=== PATIENT | male | born 1960 | race Two or more races ===

== ENCOUNTER 2019-07-03 03:18 | Inpatient (IN) | payer MEDICAID, MEDICARE ==
[~2019-07-03] VITALS: Ht 154.9 cm; Wt 49.0 kg
--- NOTE | 2019-07-03 02:30 | NUR ---
RN NOTES RECEIVED REPORT FROM NEEL SEGOVIA FROM [facility].
[2019-07-03 04:15] VITALS: BP 103/54
--- NOTE | 2019-07-03 04:15 | NUR ---
RN NOTES RECEIVED PATIENT VIA GURNEY FROM [facility] WITH AMBULANCE PERSONNEL AND RT AT BEDSIDE. , MARISEL AT BEDSIDE. RECEIVED BEDSIDE REPORT FROM NEEL INGRAM FOR DIDI. PER REPORT PT DIAGNOPATIENT CURRENTLY NONVERBAL, PER PATIENT WAS ALERT AND ABLE TO MOUTH WORDS PRIOR TO HOSPITALIZATION TODAY. PT ON MECHANICAL VENT TRACH SETTINGS: AC 24, TV 500, FIO2 40%, PEEP 5. TOLERATING WELL. SATURATING 100%. NO SOB, RESPIRATORY OR CARDIAC DISTRESS NOTED. IV SITES RIGHT WRIST 20G AND LEFT HAND 22G, BOTH FLUSHING AND PATENT, SITES C/D/I. RIGHT CHEST WALL HD CATHETER NOTED, SITE C/D/I. KEPT PT CLEAN, DRY, AND COMFORTABLE. GT FLUSHING AND PATENT, SITE C/D/I. RICCI CATH AND FLEXISEAL NOTED, BOTH OFF THE FLOOR AND DRAINING WELL. VITAL SIGNS AND SKIN ASSESSMENT DONE AND RECORDED. SAFETY MEASURES IN PLACE; SIDE RAILS UP X2, CALL LIGHT WITHIN REACH, HOB ELEVATED, SUCTION EQUIPMENT AT BEDSIDE. WILL CONT TO MONITOR PT CLOSELY. PEGGY BARR FOR ADMITTING ORDERS. AWAITING FOR ORDERS.
--- NOTE | 2019-07-03 05:09 | NUR ---
[address] SANDOVAL FOR ADMISSION ORDERS. AWAITING CALL BACK.
[2019-07-03 05:10] VITALS: BP 103/54
[2019-07-03] MEDS ORDERED: HEPARIN INFUSION/D5W 500 ML IV ONE (05:20)
[2019-07-03] MEDS ORDERED: BRIM5DRO2 LEFTEYE (05:21)
[2019-07-03] MEDS ORDERED: COLL30OI TP (05:21)
[2019-07-03] MEDS ORDERED: METF-440 GT (05:21)
[2019-07-03] MEDS ORDERED: LOPE2TAB25 GT (05:21)
[2019-07-03] MEDS ORDERED: DORZ10DR11 LEFTEYE (05:21)
[2019-07-03] MEDS ORDERED: LACT1CAP61 GT (05:21)
[2019-07-03] MEDS ORDERED: LISI2.5T2 GT (05:21)
[2019-07-03] MEDS ORDERED: CHOL4PAC GT (05:21)
[2019-07-03] MEDS ORDERED: LANS30CA62 GT (05:21)
[2019-07-03] MEDS ORDERED: BUDE0.253 NEB (05:21)
[2019-07-03] MEDS ORDERED: ALBU2.5V13 NEB (05:21)
[2019-07-03] MEDS ORDERED: HEPA500013 SQ (05:21)
[2019-07-03] MEDS ORDERED: ATRO10DR EACHEYE (05:21)
[2019-07-03] MEDS ORDERED: GLYCOPYRROLATE GT (05:21)
[2019-07-03] MEDS ORDERED: CARV12.5 GT (05:21)
[2019-07-03] MEDS ORDERED: HYDR-4076 GT (05:21)
[2019-07-03] MEDS ORDERED: LEVO500T75 GT (05:21)
[2019-07-03] MEDS ORDERED: ERGO500040 GT (05:21)
[2019-07-03] MEDS ORDERED: IPRA3AMP22 NEB (05:21)
--- NOTE | 2019-07-03 05:33 | NUR ---
1817 PAGED AGAIN FOR ADMISSION ORDERS. AWAITING CALL BACK.
--- NOTE | 2019-07-03 05:50 | NUR ---
RN NOTES PAGED MD AGAIN FOR ADMITTING ORDERS. STATED HE WILL PUT IN ORDERS FOR PATIENT. MD MADE AWARE OF HR 40'S AND HEPARIN DRIP ORDERED FROM EDWARDS 6ML/HR. MD ORDERED TO DISCONTINUE HEPARIN DRIP. WILL ATTEND TO ORDERS.
[2019-07-03] MEDS ORDERED: HYDROCODONE/APAP 5/325MG 1 EACH TABLET PO PRN (06:00)
[2019-07-03] MEDS ORDERED: ACETAMINOPHEN 325 MG TABLET PO PRN (06:00)
[2019-07-03] MEDS ORDERED: ZOLPIDEM TARTRATE 5 MG TABLET PO PRN (06:00)
[2019-07-03] MEDS ORDERED: MAG HYDROX/AL HYDROX/SIMETH 30 ML UDC PO PRN (06:00)
[2019-07-03] MEDS ORDERED: MAGNESIUM HYDROXIDE 30 ML UDC PO PRN (06:00)
[2019-07-03] MEDS: hydrALAZINE HCL 25 MG TABLET GT SCH ×3 (06:00→18:00)
[2019-07-03] MEDS ORDERED: ONDANSETRON HCL/PF 4 MG/2 ML VIAL IVP PRN (06:00)
[2019-07-03] MEDS ORDERED: Z GUARD REMEDY 2 OZ OINT TP PRN (06:00)
[2019-07-03] MEDS ORDERED: VANCOMYCIN 1 GM in IV D5W 250ml IV ONE (06:30)
[2019-07-03] MEDS ORDERED: VANCOMYCIN 1 GM VIAL ONE (06:31)
--- NOTE | 2019-07-03 07:25 | NUR ---
FLITCH HANGER OPENING NOTE: RECEIVED PATIENT IN BED, ASLEEP. AT BEDSIDE AND WAS PROVIDING THE PATIENT'S HISTORY. ON MECHANICAL VENTILATION, TOLERATING WELL. WILDLIFE CONSERVATION PROFESSOR SHOWS SINUS BRADYCARDIA IN THE 40S. MD IS AWARE OF THE SITUATION. WITH TRACH OF PORTEX 7, AC 24, TV500 FIO2 40% PEEP 5. WITH PEG TUBE, PATENT AND IN PLACE, IV SITE ON BILATERAL HANDS, PATENT. SITES CLEAN, DRY AND INTACT. RIGHT CHEST WALL LILLIAN CATHETER IN PLACE FOR HEMODIALYSIS. FLEXISEAL PRESENT AND RICCI CATHETER IN PLACE. NO URINE NOTED. NO PAIN NOTED, NOT IN DISTRESS. CALL LIGHT IN REACH, SIDE RAILS UP, BED LOCKED, LOW AND AT SEMI-KAMARA'S POSITION. WILL CONTINUE TO MONITOR.
--- NOTE | 2019-07-03 07:34 | NUR ---
PHYSICS TECHNICIAN CLOSING NOTES ALL ADMITTING ORDERS ATTENDED. PATIENT STILL UNRESPONSIVE. ON TELE MONITOR SB WITH HR 40'S, AWARE. PER , PATIENT ALLERGIC TO AN ANTIBIOTIC BUT CANNOT REMEMBER THE NAME AND STATED "CALL [employer], I THINK THEY KNOW THE NAME OF THE ANTIBIOTIC" AM RN MADE AWARE. PATIENT KEPT CLEAN, DRY, AND COMFORTABLE. ENDORSED TO AM RN FOR DIDI.
[2019-07-03 07:40] LABS: BASOPHILS % (AUTO) 0.2 % (0.0-2.0); EOSINOPHILS % (AUTO) 3.4 % (0.0-6.0); HEMATOCRIT 28 % (39-51); LYMPHOCYTES # (AUTO) 1.1 /CMM (0.8-4.8); LYMPHOCYTES % (AUTO) 7.4 % (20.0-44.0); MEAN CORPUSCULAR HGB CONC 32 g/dl (31.0-36.0); MEAN CORPUSCULAR VOLUME 95 fL (80-96); MONOCYTES # (AUTO) 0.9 /CMM (0.1-1.30); MONOCYTES % (AUTO) 5.9 % (2.0-12.0); NEUTROPHILS # (AUTO) 12.3 /CMM (1.8-8.9); NEUTROPHILS % (AUTO) 83.1 % (43.0-81.0); PLATELET COUNT (AUTO) 55 /CMM (150-450); RED BLOOD CELL COUNT(AUTO) 2.97 MIL/uL (4.5-6.0); WHITE BLOOD COUNT (AUTO) 14.8 K/uL (4.3-11.0)
[2019-07-03 07:59] LABS: CALCIUM, SERUM 7.6 mg/dL (8.5-10.1); CREATININE 2.8 mg/dL (0.6-1.3); MAGNESIUM 2.3 mg/dL (1.8-2.4); PHOSPHORUS 6.7 mg/dL (2.5-4.9); POTASSIUM 4.4 mmol/L (3.5-5.1)
[2019-07-03 08:00] VITALS: BP_SYST 108; BP_SYST 112; BP_DIAS 49
[2019-07-03 08:09] LABS: BAND % (MANUAL) 6 % (0.0-5.0); EOSINOPHILS % (MANUAL) 4 % (0-4); LYMPHOCYTES % (MANUAL) 10 % (16-48); MONOCYTES % (MANUAL) 6 % (0-11.0); NEUTROPHILS % (MANUAL) 74 (42-76)
[2019-07-03] MEDS: ALBUTEROL FS 2.5 MG/0.5 ML VIAL.NEB NEB SCH ×3 (08:27→19:28)
[2019-07-03] MEDS: BUDESONIDE RESPULE INH 0.25 MG/2 ML AMPUL.NEB NEB SCH ×2 (08:53→20:51)
[2019-07-03] MEDS ORDERED: THERAHONEY GEL 1.5 OZ TUBE TP PRN (09:00)
[2019-07-03] MEDS: CARVEDILOL 12.5 MG TABLET GT SCH ×2 (09:00→17:00)
[2019-07-03] MEDS: HEPARIN SODIUM, PORCINE 5000 UNITS/1 ML VIAL SQ SCH ×2 (09:00→21:00)
[2019-07-03] MEDS ORDERED: VANCOMYCIN 500 MG in IV D5W 100 ML IV PRN (09:00)
--- NOTE | 2019-07-03 09:00 | NUR ---
DENTAL SURGERY DOCTOR NOTE: BP MEDICATION WAS HELD BECAUSE OF THE RANGE. MEDICATION WAS WASTED AND WITNESSED BY NEEL SCALES Addendum: 07/03/19 at 2123 by LILLIAM MCGREGOR RN HEPARIN WAS ALSO WASTED DUE TO PATIENT'S LAB VALUES.
[2019-07-03] MEDS: BRIMONIDINE TARTRATE OPHT SOLN 5 ML BOTTLE LEFTEYE SCH ×2 (09:28→19:10)
[2019-07-03] MEDS: GLYCOPYRROLATE 1 MG TABLET GT SCH ×2 (09:28→19:10)
[2019-07-03] MEDS: DORZOLAMIDE OPTH 2% 10 ML BOTTLE LEFTEYE SCH ×2 (09:29→19:10)
[2019-07-03] MEDS: TIMOLOL 0.5% SOLN OPHTH 5 ML BOTTLE LEFTEYE SCH ×2 (09:29→19:10)
[2019-07-03] MEDS: ATROPINE SULFATE OPHTH SOLN 15 ML BOTTLE EACHEYE SCH ×2 (09:29→19:11)
[2019-07-03] MEDS ORDERED: LOPERAMIDE HCL UDC(2 MG/10 ML) 2 MG/10 ML UDC GT SCH (09:30)
--- NOTE | 2019-07-03 09:45 | NUR ---
BUTADIENE CONVERTER OPERATOR NOTE: PAGED DR. KIMBLE ABOUT PATIENT'S BUN LEVEL OF 91.
--- NOTE | 2019-07-03 09:46 | NUR ---
SAND CUTTER NOTE: PHARMACY INFORMED OF PATIENT'S ALLERGY TO PENICILLINS PER
[2019-07-03] MEDS: CEFEPIME 1 GM in IV D5W 50 ML IV SCH (10:16)
[2019-07-03] MEDS: LACTOBACILLUS RHAMNOSUS GG 1 EACH CAP.SPRINK GT SCH ×2 (10:16→19:11)
[2019-07-03] MEDS: CHOLESTYRAMINE/ASPARTAME 4 G/PKT PACKET GT SCH ×2 (10:16→19:10)
--- NOTE | 2019-07-03 10:30 | NUR ---
MINE SUPERVISOR NOTE: INFORMED DR. TANK GRIFFIN OF 'S REFUSAL FOR CT SCAN PROCEDURE ORDER FOR DISCONTINUATION OF RICCI CATHETER ORDERED.
[2019-07-03] MEDS: HYDROGEL DRESSING 90 GM TUBE TP SCH (10:45)
[2019-07-03] MEDS ORDERED: LOPERAMIDE HCL UDC 2 MG/15 ML LIQUID GT SCH (11:00)
[2019-07-03 12:00] VITALS: BP 123/51
[2019-07-03] MEDS ORDERED: FEE PK DOSING 1 MIN EA MC ONE (12:04)
[2019-07-03] MEDS ORDERED: NEPRO 1,000 ML BOTTLE GT SCH (13:00)
[2019-07-03] MEDS ORDERED: CEFEPIME 2 GM in IV NS 0.9% 50 ML IV SCH (13:00)
[2019-07-03] MEDS: BLOOD SUGAR DIAGNOSTIC 1 EACH STRIP IN SCH ×2 (13:12→19:09)
[2019-07-03] MEDS: IPRATROPIUM NEB FS 0.5 MG/2.5 ML AMPUL.NEB NEB SCH ×2 (13:59→19:28)
[2019-07-03] MEDS ORDERED: LOPERAMIDE HCL UDC 2 MG/15 ML LIQUID GT PRN (14:37)
[2019-07-03 16:00] VITALS: BP_SYST 107; BP_SYST 132; BP_DIAS 55; BP_DIAS 59
--- NOTE | 2019-07-03 17:00 | NUR ---
HAND BASEBALL SEWER NOTE: BP MEDICATION WAS HELD BECAUSE OF THE RANGE. MEDICATION WAS WASTED AND WITNESSED BY NEEL SCALES
--- NOTE | 2019-07-03 17:26 | NUR ---
Patient is trach/vent dependent. He is totally dependent with adl's and bedbound. Spoke with patient Josie [phone], states patient currently resides at [facility] [phone] address; [address] [place] [address]. Spoke with Padmini- charge nurse at [facility]- patient bed is on bedhold. Patient receives hemodialysis every TThS at 9:45am and uses [employer] transportation. states she doers not want patient to go back to [facility]. would like [facility]. reports patient is on the waiting list for a bed at [facility]. Addendum: 07/03/19 at 1727 by CECY CARR RN Amended: Links added.
[2019-07-03 17:46] LABS: ABG BASE EXCESS -9.4 mmol/L; ABG OXYGEN SATURATION 98.6 % (92.0-98.5); ABG PCO2 27.9 mmHg (35.0-45.0); ABG PH 7.349 (7.350-7.450); ABG PO2 175.2 mmHg (75.0-100.0); AaDO2 77.9 mmHg; COHb 0.3 % (0.5-1.5); MetHb 0.7 % (0.0-1.5); O2Hb 97.6 % (94.0-97.0); PEEP,BG 5 cm H2O; SITE, ABG Right Brachial; VT, ABG 500 mL
--- NOTE | 2019-07-03 19:00 | NUR ---
BOAT HAND NOTE: SPOKE TO DR. SANDOVAL AND GOT ORDERS REGARDING PATIENT'S HYPOGLYCEMIA.
[2019-07-03] MEDS ORDERED: INSULIN REGULAR, HUMAN 100 UNIT/ML 3 ML VIAL SQ PRN (19:30)
--- NOTE | 2019-07-03 19:30 | NUR ---
MANAGER PORT CLOSING NOTE: PATIENT IN BED, ASLEEP. STILL ON MECHANICAL VENTILATION, TOLERATING WELL. NETEZZA DEVELOPER STILL SHOWS SINUS BRADYCARDIA IN THE 40S. WITH TRACH OF PORTEX 7, AC 24, TV500 FIO2 40% PEEP 5. WITH PEG TUBE, PATENT AND IN PLACE, IV SITE ON BILATERAL HANDS, PATENT. SITES CLEAN, DRY AND INTACT. RIGHT CHEST WALL LILLIAN CATHETER IN PLACE FOR HEMODIALYSIS. FLEXISEAL PRESENT. NO URINE NOTED. NO PAIN NOTED, NOT IN DISTRESS. CALL LIGHT IN REACH, SIDE RAILS UP, BED LOCKED, LOW AND AT SEMI-KAMARA'S POSITION. PATIENT'S BLOOD SUGAR WILL BE RECHECKED AFTER 1HR BY THE NEXT SHIFT AFTER ADMINISTRATION OF D50 BOLUS. ENDORSED TO ONCOMING SHIFT FOR CONTINUITY OF CARE.
--- NOTE | 2019-07-03 19:40 | NUR ---
TRAVEL DIRECTOR NOTES RECEIVED ON BED,OPEN EYES,OBTUNDED,ON TRACH TO VENT,SETTINGS TOLERATED WELL,O2 SAT 100%.WITH GT TUBE FEEDING OF NEPHRO AT 25ML/HR RATE, HOB ELEVATED FOR ASPIRATION PRECAUTION.FLEXICIL IN PLACE,FOR HEMODIALYSIS TREATMENT TODAY.SA;INE LOCK X2 ON RIGHT AND LEFT WRIST INTACT AND PATENT.REPOSITION PER PROTOCOL,WILL CONTINUE TO MONITOR STATUS.
[2019-07-03] MEDS: DEXTROSE 50%-WATER 50 ML DISP.SYRIN IV PRN (19:45)
[2019-07-03 20:00] VITALS: BP 110/41
--- NOTE | 2019-07-03 20:58 | NUR ---
PT RCVD TRACH'D ON MECHANICAL VENT WITH CHARTED SETTINGS. PT [place] TX WELL. SX DONE. PT TRACH IS PATENT AND SECURE. VENT ALARMS APPEAR TO BE FUNCTIONING PROPERLY. VENT PLUGGED INTO RED OUTLET. AMBU BAG AT BEDSIDE. NO SOB NOTED. Addendum: 07/03/19 at 2057 by ASHLIE ZAMARRIPA RT Amended: Links added.
--- NOTE | 2019-07-03 23:00 | NUR ---
ANTENNA RIGGER NOTES HEMODIALYSIS COMPLETED,TOLERATED WELL.NO OUTPUT TAKEN OUT PER HD NURSE.VITAL SIGNS WITH IN NORMAL LIMITS.
--- NOTE | 2019-07-03 23:02 | NUR ---
DIRECTOR OF KNOWLEDGE MANAGEMENT NOTES RANDOM VANCO TROUGH IS 25,DOSE HELD PER LEVEL PROTOCOL
[2019-07-04] VITALS: BP 153/57
[2019-07-04] MEDS: BLOOD SUGAR DIAGNOSTIC 1 EACH STRIP IN SCH ×4 (00:11→17:23)
[2019-07-04] MEDS: hydrALAZINE HCL 25 MG TABLET GT SCH ×4 (00:14→17:13)
--- NOTE | 2019-07-04 00:30 | NUR ---
HOTEL MAID NOTES ACCU-CHECK BLOOD SUGAR 80MG/DL,NO INSULIN COVERAGE.GT FEEDING IN PROGRESS.
--- NOTE | 2019-07-04 00:33 | NUR ---
ORIENTATION & MOBILITY SPECIALIST NOTES LOOSE BM NOTED ON FLEXICIL,BAG,MEDICATED WITH IMMODIUM 2MG/15ML VIA GT.WILL CONTINUE TO MONITOR
[2019-07-04] MEDS: ALBUTEROL FS 2.5 MG/0.5 ML VIAL.NEB NEB SCH ×4 (01:42→19:54)
[2019-07-04] MEDS: IPRATROPIUM NEB FS 0.5 MG/2.5 ML AMPUL.NEB NEB SCH ×4 (01:42→19:54)
[2019-07-04 04:00] VITALS: BP 138/49
--- NOTE | 2019-07-04 05:34 | NUR ---
SENIOR DATA WAREHOUSE ARCHITECT NOTES ACCU-CHECK BLOOD SUGAR CHECK 97,NO INSULIN COVERAGE.
--- NOTE | 2019-07-04 06:24 | NUR ---
CLINIC CMA NOTES REMAINS OBTUNDED,BOTH EYES COVERED BY DUE TO DRYNESS.REPOSITION PER PROTOCOL.IN NO ACUTE DISTRESS.WILL ENDORSE TO DAY NURSE FOR DIDI.
[2019-07-04 06:36] LABS: BASOPHILS % (AUTO) 0.3 % (0.0-2.0); EOSINOPHILS % (AUTO) 3.3 % (0.0-6.0); HEMATOCRIT 28 % (39-51); HEMOGLOBIN 9.3 g/dL (13.5-17.5); LYMPHOCYTES # (AUTO) 0.6 /CMM (0.8-4.8); LYMPHOCYTES % (AUTO) 5.7 % (20.0-44.0); MEAN CORPUSCULAR HGB CONC 33 g/dl (31.0-36.0); MEAN CORPUSCULAR VOLUME 94 fL (80-96); MONOCYTES # (AUTO) 0.5 /CMM (0.1-1.30); MONOCYTES % (AUTO) 4.9 % (2.0-12.0); NEUTROPHILS # (AUTO) 9.4 /CMM (1.8-8.9); NEUTROPHILS % (AUTO) 85.8 % (43.0-81.0); PLATELET COUNT (AUTO) 53 /CMM (150-450); RED BLOOD CELL COUNT(AUTO) 3.03 MIL/uL (4.5-6.0); WHITE BLOOD COUNT (AUTO) 10.9 K/uL (4.3-11.0)
[2019-07-04 07:02] LABS: ALBUMIN 1.6 g/dL (3.4-5.0); BILIRUBIN,TOTAL 1.9 mg/dL (0.2-1.0); CALCIUM, SERUM 7.7 mg/dL (8.5-10.1); CREATININE 2.1 mg/dL (0.6-1.3); POTASSIUM 4.1 mmol/L (3.5-5.1); TOTAL PROTEIN, SERUM 6.6 g/dL (6.4-8.2)
[2019-07-04 07:26] LABS: BAND % (MANUAL) 6 % (0.0-5.0); EOSINOPHILS % (MANUAL) 6 % (0-4); LYMPHOCYTES % (MANUAL) 4 % (16-48); MONOCYTES % (MANUAL) 4 % (0-11.0); NEUTROPHILS % (MANUAL) 80 (42-76)
--- NOTE | 2019-07-04 07:30 | NUR ---
CLINICIAN ONCOLOGY OPENING NOTE: RECEIVED PATIENT IN BED, ASLEEP. ON MECHANICAL VENTILATION, TOLERATING WELL. SOCIETY REPORTER SHOWS SINUS RHYTHM AT MD IS AWARE OF THE SITUATION. WITH TRACH OF PORTEX 7, AC 24, TV500 FIO2 40% PEEP 5. WITH PEG TUBE, PATENT AND IN PLACE, IV SITE ON BILATERAL HANDS, PATENT. SITES CLEAN, DRY AND INTACT. RIGHT CHEST WALL LILLIAN CATHETER IN PLACE FOR HEMODIALYSIS. FLEXISEAL PRESENT. NO URINE NOTED. NO PAIN NOTED, NOT IN DISTRESS. CALL LIGHT IN REACH, SIDE RAILS UP, BED LOCKED, LOW AND AT SEMI-KAMARA'S POSITION. WILL CONTINUE TO MONITOR. Addendum: 07/04/19 at 2022 by LILLIAM MCGREGOR RN HR OF 64
[2019-07-04 08:00] VITALS: BP 130/72
[2019-07-04] MEDS: HEPARIN SODIUM, PORCINE 5000 UNITS/1 ML VIAL SQ SCH ×2 (09:00→22:18)
[2019-07-04] MEDS: BUDESONIDE RESPULE INH 0.25 MG/2 ML AMPUL.NEB NEB SCH ×2 (09:19→20:35)
[2019-07-04] MEDS: PANTOPRAZOLE 40 MG/PACK PACK GT SCH (09:27)
[2019-07-04] MEDS: LACTOBACILLUS RHAMNOSUS GG 1 EACH CAP.SPRINK GT SCH ×2 (09:27→17:13)
[2019-07-04] MEDS: CEFEPIME 1 GM in IV D5W 50 ML IV SCH (09:27)
[2019-07-04] MEDS: CARVEDILOL 12.5 MG TABLET GT SCH ×2 (09:27→17:13)
[2019-07-04] MEDS: GLYCOPYRROLATE 1 MG TABLET GT SCH ×2 (09:27→17:13)
[2019-07-04] MEDS: BRIMONIDINE TARTRATE OPHT SOLN 5 ML BOTTLE LEFTEYE SCH ×2 (09:28→17:14)
[2019-07-04] MEDS: TIMOLOL 0.5% SOLN OPHTH 5 ML BOTTLE LEFTEYE SCH ×2 (09:28→17:14)
[2019-07-04] MEDS: ATROPINE SULFATE OPHTH SOLN 15 ML BOTTLE EACHEYE SCH ×2 (09:28→17:13)
[2019-07-04] MEDS: DORZOLAMIDE OPTH 2% 10 ML BOTTLE LEFTEYE SCH ×2 (09:28→17:13)
[2019-07-04] MEDS: HYDROGEL DRESSING 90 GM TUBE TP SCH (09:29)
[2019-07-04] MEDS: CHOLESTYRAMINE/ASPARTAME 4 G/PKT PACKET GT SCH ×2 (09:30→17:13)
--- NOTE | 2019-07-04 09:34 | NUR ---
ASSOCIATE CURATOR NOTE: CT HEAD SCAN WITHOUT CONTRAST PROCEDURE CANCELLED OF THE PATIENT REFUSED PROCEDURE. SHE SAID THAT HE HAD IT DONE ON 07/02 WHILE THEY WERE AT [facility]. DR. GRIFFIN MADE AWARE.
--- NOTE | 2019-07-04 10:42 | NUR ---
WOUND CARE CONSULT WOUND CARE RECEIVED CONSULT FOR MULTIPLE WOUNDS. WOUND CARE WILL DEFER CONSULT AND TREATMENT PLANS TO PLASTIC SURGICAL TEAM INCLUDING DPMargy MIRELES WHO ARE ALL CURRENTLY FOLLOWING THIS PATIENT. PATIENT WITH ROD AT 7, ALL PRESSURE ULCER PREVENTION MEASURES ARE NOTED TO BE IN PLACE AT THIS TIME. WILL SEE PRN. ISOFLEX RAUL SPECIALTY BED TO BE PLACE WHEN AVAILABLE.
[2019-07-04 12:00] VITALS: BP 133/68
[2019-07-04 16:00] VITALS: BP 142/67
--- NOTE | 2019-07-04 19:15 | NUR ---
RN OPENING NOTES: PATIENT ASLEEP BUT EASILY AWAKENED. FAMILY AT BEDSIDE. ON MECHANICAL VENT TRACH, TOLERATING WELL. NO RESPIRATORY DISTRESS. NO S/S OF PAIN. HOB ELEVATED. GT SITE INTACT AND TOLERATING FEEDING WELL. NO RESIDUALS. RIGHT CHEST WALL INTACT. ON FLEXISEAL. SAFETY PRECAUTIONS IMPLEMENTED. BED LOCKED AND IN LOWEST POSITION. CALL LIGHT PLACED WITHIN REACH. WILL CONT. TO MONITOR.
--- NOTE | 2019-07-04 19:20 | NUR ---
INSTALLATIONS INSPECTOR CLOSING NOTE: PATIENT IN BED, ASLEEP. ON MECHANICAL VENTILATION, TOLERATING WELL. MECHANICAL ENGINEERING TECHNICIAN SHOWS SINUS RHYTHM AT 61. WITH TRACH OF PORTEX 7, AC 24, TV500 FIO2 40% PEEP 5. WITH PEG TUBE, PATENT AND IN PLACE, IV SITE ON BILATERAL HANDS, PATENT. SITES CLEAN, DRY AND INTACT. RIGHT CHEST WALL LILLIAN CATHETER IN PLACE FOR HEMODIALYSIS. FLEXISEAL PRESENT. NO URINE NOTED. NO PAIN NOTED, NOT IN DISTRESS. CALL LIGHT IN REACH, SIDE RAILS UP, BED LOCKED, LOW AND AT SEMI-KAMARA'S POSITION. WILL ENDORSE TO ONCOMING NURSE FOR DIDI.
[2019-07-04 20:00] VITALS: BP 136/66
--- NOTE | 2019-07-04 20:36 | NUR ---
RECEIVE PT STABLE ON MV, SETTINGS ARE AC 16 500 +5 @ 30% FIO2, ALARMS ARE ON AND AUDIBLE, AMBU BAG IS AT BEDSIDE, TRACH PATENT AND SECURED, VENT PLUG IN AT RED OUTLET, WILL CONTINUE TO MONITOR Addendum: 07/04/19 at 2036 by SUKI SHORE RT Amended: Links added.
--- NOTE | 2019-07-04 22:10 | NUR ---
RN NOTE: SPOKE WITH DR. SANDOVAL REGARDING PLATELET COUNT 53. PATIENT ON HEPARIN SQ. PER MD, OK TO GIVE DOSE SINCE PLATELET DID NOT DROP MORE THAN 30%.
[2019-07-05] VITALS: BP 139/63
[2019-07-05] MEDS: BLOOD SUGAR DIAGNOSTIC 1 EACH STRIP IN SCH ×3 (00:17→13:44)
[2019-07-05] MEDS: hydrALAZINE HCL 25 MG TABLET GT SCH ×3 (00:37→12:00)
[2019-07-05] MEDS: IPRATROPIUM NEB FS 0.5 MG/2.5 ML AMPUL.NEB NEB SCH ×3 (01:46→14:09)
[2019-07-05] MEDS: ALBUTEROL FS 2.5 MG/0.5 ML VIAL.NEB NEB SCH ×3 (01:47→14:09)
[2019-07-05 04:00] VITALS: BP 130/70
--- NOTE | 2019-07-05 07:00 | NUR ---
RN OPENING NOTES: RECEIVED REPORT AT BEDSIDE. PATIENT ASLEEP, AROUSABLE BY TOUCH. ON MECHANICAL VENT TRACH, SATURATING 98%. NO RESPIRATORY DISTRESS. ON TELE MONITOR SINUS BRADYCARDIA HR 59. NO SIGN OF CARDIAC DISTRESS AT THIS TIME. HOB ELEVATED. GT TUBE RUNNING @ 35 ML/HR. NO RESIDUALS. RIGHT CHEST WALL INTACT. ON FLEXISEAL. IV RIGHT WRIST # 20 AND LEFT WRIST #22, BOTH SL, INTACT AND FLUSHED WELL. NO SIGN OF INFILTRATION NOTED. SAFETY PRECAUTIONS IMPLEMENTED. BED LOCKED AND IN LOWEST POSITION. CALL LIGHT PLACED WITHIN REACH. SIDE RAILS UP X3. WILL CONT TO MONITOR.
[2019-07-05 07:06] LABS: BASOPHILS % (AUTO) 0.3 % (0.0-2.0); EOSINOPHILS % (AUTO) 6.9 % (0.0-6.0); HEMATOCRIT 29 % (39-51); HEMOGLOBIN 9.5 g/dL (13.5-17.5); LYMPHOCYTES # (AUTO) 0.9 /CMM (0.8-4.8); LYMPHOCYTES % (AUTO) 9.4 % (20.0-44.0); MEAN CORPUSCULAR HGB CONC 32 g/dl (31.0-36.0); MEAN CORPUSCULAR VOLUME 94 fL (80-96); MONOCYTES # (AUTO) 0.4 /CMM (0.1-1.30); MONOCYTES % (AUTO) 4.6 % (2.0-12.0); NEUTROPHILS # (AUTO) 7.4 /CMM (1.8-8.9); NEUTROPHILS % (AUTO) 78.8 % (43.0-81.0); PLATELET COUNT (AUTO) 55 /CMM (150-450); RED BLOOD CELL COUNT(AUTO) 3.15 MIL/uL (4.5-6.0); WHITE BLOOD COUNT (AUTO) 9.4 K/uL (4.3-11.0)
--- NOTE | 2019-07-05 07:15 | NUR ---
RN CLOSING NOTES: PATIENT IN STABLE CONDITION AT THIS TIME. BEDSIDE REPORT GIVEN TO AM SHIFT NURSE FOR DIDI. ENDORSED TO CALL WHEN DIALYSIS NURSE IS AT BEDSIDE.
[2019-07-05 07:38] LABS: CALCIUM, SERUM 7.5 mg/dL (8.5-10.1); CREATININE 2.5 mg/dL (0.6-1.3); POTASSIUM 4.5 mmol/L (3.5-5.1)
--- NOTE | 2019-07-05 07:53 | NUR ---
HD NURSE AT BEDSIDE. CALLED PATIENT'S AND INFORMED HER (PER HER REQUEST).
[2019-07-05 08:00] VITALS: BP 121/58
[2019-07-05] MEDS: CARVEDILOL 12.5 MG TABLET GT SCH ×2 (09:00→10:20)
[2019-07-05] MEDS: HEPARIN SODIUM, PORCINE 5000 UNITS/1 ML VIAL SQ SCH (09:00)
--- NOTE | 2019-07-05 09:00 | NUR ---
HEPARIN HOLD. PLT 55, THERE IS NO PTT LAB VALUE. WILL FOLLOW UP WITH .
[2019-07-05 09:07] LABS: BAND % (MANUAL) 1 % (0.0-5.0); EOSINOPHILS % (MANUAL) 10 % (0-4); LYMPHOCYTES % (MANUAL) 3 % (16-48); MONOCYTES % (MANUAL) 4 % (0-11.0); NEUTROPHILS % (MANUAL) 82 (42-76)
--- NOTE | 2019-07-05 10:12 | NUR ---
HD done. 0 output.
[2019-07-05] MEDS: PANTOPRAZOLE 40 MG/PACK PACK GT SCH (10:19)
[2019-07-05] MEDS: LACTOBACILLUS RHAMNOSUS GG 1 EACH CAP.SPRINK GT SCH (10:19)
[2019-07-05] MEDS: GLYCOPYRROLATE 1 MG TABLET GT SCH (10:19)
[2019-07-05] MEDS: DORZOLAMIDE OPTH 2% 10 ML BOTTLE LEFTEYE SCH (10:20)
[2019-07-05] MEDS: TIMOLOL 0.5% SOLN OPHTH 5 ML BOTTLE LEFTEYE SCH (10:21)
[2019-07-05] MEDS: CEFEPIME 1 GM in IV D5W 50 ML IV SCH (10:22)
[2019-07-05] MEDS: CHOLESTYRAMINE/ASPARTAME 4 G/PKT PACKET GT SCH ×2 (10:22→12:41)
[2019-07-05] MEDS: BRIMONIDINE TARTRATE OPHT SOLN 5 ML BOTTLE LEFTEYE SCH (10:22)
[2019-07-05 10:24] LABS: ABG BASE EXCESS -0.6 mmol/L; ABG OXYGEN SATURATION 96.6 % (92.0-98.5); ABG PCO2 36.7 mmHg (35.0-45.0); ABG PH 7.425 (7.350-7.450); ABG PO2 99.9 mmHg (75.0-100.0); AaDO2 143.1 mmHg; COHb 0.3 % (0.5-1.5); MetHb 0.4 % (0.0-1.5); O2Hb 95.9 % (94.0-97.0); SITE, ABG Left Radial
[2019-07-05] MEDS: HYDROGEL DRESSING 90 GM TUBE TP SCH (10:24)
--- NOTE | 2019-07-05 10:30 | NUR ---
Blood pressure medication hold because of low BP. made aware
--- NOTE | 2019-07-05 11:34 | NUR ---
DR ROBERTSON ORDERED TO DC HEPARIN. ORDER CARRIED OUT.
[2019-07-05] MEDS: ATROPINE SULFATE OPHTH SOLN 15 ML BOTTLE EACHEYE SCH (11:42)
[2019-07-05 12:00] VITALS: BP_SYST 58; BP_SYST 65; BP_DIAS 30; BP_DIAS 35
[2019-07-05] MEDS: BUDESONIDE RESPULE INH 0.25 MG/2 ML AMPUL.NEB NEB SCH (12:03)
--- NOTE | 2019-07-05 12:20 | NUR ---
PATIENT'S SAID SHE WANT THE PATIENT TO BE DNR. DOCTOR MADE AWARE. ORDER CARRIED OUT.
--- NOTE | 2019-07-05 12:44 | NUR ---
BP 63/35. PINK DRAINAGE NOTICED ON THE RIGHT EAR. DR LYLA WOODS.
[2019-07-05] MEDS ORDERED: IV NS 0.9% 250 ML IV ONE (13:00)
[2019-07-05] MEDS: DEXTROSE 50%-WATER 50 ML DISP.SYRIN IV PRN (13:44)
[2019-07-05] MEDS ORDERED: DEXTROSE 50%-WATER 50 ML DISP.SYRIN IVP PRN (13:45)
--- NOTE | 2019-07-05 14:14 | NUR ---
BS 37. DR ROBERTSON AT BEDSIDE. ORDERED DEXTROSE 50%. RECHECKED BS IN 30 MIN. BS 65. CHARGE NURSE AND MD MADE AWARE.
[2019-07-05 15:30] VITALS: BP 45/24
--- NOTE | 2019-07-05 15:50 | NUR ---
07/05/19/ at 1550,TEL NURSE ,Telemetry shows Asystolic no palpable pulses pnounced at this time Jean Naranjo and nursing snow removing supervisor was notified at present time family at bed side at 1600, one legacy called in and case # [id number]
--- NOTE | 2019-07-05 15:55 | NUR ---
PATIENT . ALL WOUND TX AND MEDICATION GIVEN DURING THE SHIFT. PATIENT'S AND SISTER IN LAW AT BEDSIDE ALL THE DAY. MADE AWARE.
--- NOTE | 2019-07-05 17:00 | NUR ---
POST-MORTEM CARE DONE.
--- NOTE | 2019-07-05 18:06 | NUR ---
BODY TAKEN TO NATALIE.
[2019-07-06] MEDS ORDERED: ERGOCALCIFEROL (VITAMIN D 2) 50,000 UNIT CAPSULE GT SCH (09:00)
== END 2019-07-05 15:53 | disposition expired | DRG 720 ==
LOC: TELE1 04:08
PROVIDERS: ADMIT Hospitalist; ATTEND Hospitalist
PROC: 0JB70ZZ Excision of Back Subcutaneous Tissue and Fascia, Open Approach (ICD-10-PCS; principal; 2019-07-03)
PROC: 5A1945Z Respiratory Ventilation, 24-96 Consecutive Hours (ICD-10-PCS; principal; 2019-07-03)
PROC: 5A1D70Z Performance of Urinary Filtration, Intermittent, Less than 6 Hours Per Day (ICD-10-PCS; principal; 2019-07-03)
DX: A41.9 Sepsis, unspecified organism (principal); G92 Toxic encephalopathy; E43 Unspecified severe protein-calorie malnutrition; Z99.11 Dependence on respirator [ventilator] status; I96 Gangrene, not elsewhere classified; J18.9 Pneumonia, unspecified organism; R64 Cachexia; E87.2 Acidosis; J96.10 Chronic respiratory failure, unspecified whether with hypoxia or hypercapnia; I95.3 Hypotension of hemodialysis; Z66 Do not resuscitate; L89.143 Pressure ulcer of left lower back, stage 3; D69.6 Thrombocytopenia, unspecified; I12.0 Hypertensive chronic kidney disease with stage 5 chronic kidney disease or end stage renal disease; N18.6 End stage renal disease; Z93.1 Gastrostomy status; Z99.2 Dependence on renal dialysis; R53.2 Functional quadriplegia; Z93.0 Tracheostomy status; R74.8 Abnormal levels of other serum enzymes; Z68.20 Body mass index [BMI] 20.0-20.9, adult; E16.2 Hypoglycemia, unspecified; L90.5 Scar conditions and fibrosis of skin; S01.81XA Laceration without foreign body of other part of head, initial encounter; X58.XXXA Exposure to other specified factors, initial encounter; Y93.9 Activity, unspecified; Y92.129 Unspecified place in nursing home as the place of occurrence of the external cause; J98.11 Atelectasis; D64.9 Anemia, unspecified; M62.50 Muscle wasting and atrophy, not elsewhere classified, unspecified site
CPT/HCPCS: 31720; 36415; 36600; 71045-TC; 80048-TC; 80053-TC; 80061-TC; 80202-TC; 82803-TC; 82962-TC; 83605-TC; 83735-TC; 84100-TC; 84484-TC; 85025-TC; 86706; 87040-TC; 87081-TC; 87340; 90935-TC; 94002-TC; 94003-TC; 94760-TC; 94762-TC; A4216; A4623; A6248; A7526; G0378; J0692; J1644; J1815; J3370; J7050; J7060